=== PATIENT | female | born 1935 | race Caucasian/White ===

== ENCOUNTER 2017-10-24 08:10 | Outpatient (CLI) | payer MEDICARE ==
--- NOTE | 2017-10-24 09:47 | RAD ---
FIVE VIEWS CERVICAL SPINE: Comparison: None. History: Neck pain, cervicalgia. FINDINGS: Five views of the cervical spine shows normal height and alignment of the vertebral bodies and intrav ertebral discs without fracture or subluxation. No prevertebral soft tissue swelling is seen. Alignme nt is unchanged with flexion and extension. Mild degenerative changes are seen in the cervical spine. IMPRESSION: Mild degenerative changes of the cervical spine with unchanged alignment with bending. POS: [facility]
--- NOTE | 2017-10-24 09:50 | RAD ---
FOUR VIEWS LUMBAR SPINE: Date: 10-24-17 Comparison: None. History: Low back pain with bilateral knee pain extending into the feet. FINDINGS: There is a mild degree of dextroscoliosis of the lumbar spine. There is atherosclerotic calcification and tortuosity of the abdominal aorta. Neutral lateral imaging demonstrates anterolisthesis of 2-3 m m at L3-4 and 4 mm at L4-5. Facet hypertrophy at L3-4 through L5-S1 noted bilaterally. With flexion, anterolisthesis of L3 on L4 measures 2 mm and of L4 on L5 measures 6 mm. With extension the anterolis thesis at L3-4 is in the 2 mm range and at L4-5 is in the 4 mm range. No acute osseous abnormality. IMPRESSION: Multilevel degenerative change noted within the lumbar spine. This includes anterolisthesis of L4 on L5 measuring up to 6 mm with flexion. POS: [facility]
--- NOTE | 2017-10-24 10:12 | MRI ---
MRI CERVICAL SPINE WITHOUT CONTRAST: Comparison: None. History: Neck pain, cervicalgia. History of blocked carotid arteries and arthritis. Technique: Multiplanar, multisequence MRI images were obtained of the cervical spine without contrast . FINDINGS: Generalized disc desiccation is seen. The vertebral bodies demonstrate normal height and alignment wi th fracture or subluxation. The visualized cord demonstrates normal signal throughout. The craniocerv ical junction is unremarkable. C2-3: Unremarkable. C3-4: Unremarkable. C4-5: Unremarkable. C5-6: A small disc osteophyte complex is seen. Mild bilateral posterior cytosis. Mild central canal s tenosis. Mild to moderate bilateral neural foraminal stenosis. C6-7: A small disc osteophyte complex is seen. Mild bilateral posterior facet arthrosis. Mild central canal stenosis. Mild bilateral neural foraminal stenosis. C7-T1: Unremarkable. IMPRESSION: Degenerative changes of the cervical spine as above. POS: [facility]
== END 2017-10-24 08:11 | disposition home or self-care (01) ==
LOC: TBSIIMAG 08:10
PROVIDERS: ATTEND Surgery
DX: M54.2 Cervicalgia (principal); M54.6 Pain in thoracic spine; M54.5 Low back pain; M47.896 Other spondylosis, lumbar region; M43.16 Spondylolisthesis, lumbar region; M47.892 Other spondylosis, cervical region
CPT/HCPCS: 72050; 72110; 72141; 72146; 72148

== ENCOUNTER 2018-10-06 10:31 | Outpatient (CLI) | payer MEDICARE ==
--- NOTE | 2018-11-03 13:03 | MMO ---
Bilateral MAMMO Bilat Screen [facility]. CLINICAL HISTORY: Patient is 82 years old and is seen for screening. The patient has the following family history of breast cancer: sister. The patient has no personal history of cancer. VIEWS: The views performed were: bilateral craniocaudal with tomosynthesis and bilateral mediolateral oblique with tomosynthesis. MAMMOGRAM FINDINGS: There are scattered fibroglandular densities. There are benign appearing calcifications seen in both breasts. There are also vascular calcifications. There are no suspicious masses, suspicious calcifications, or new areas of architectural distortion. IMPRESSION: THERE IS NO MAMMOGRAPHIC EVIDENCE OF MALIGNANCY. A ROUTINE FOLLOW-UP MAMMOGRAM IN 1 YEAR IS RECOMMENDED. THE RESULTS OF THIS EXAM WERE SENT TO THE PATIENT. ACR BI-RADS Category 2 - Benign finding MAMMOGRAPHY NOTE: 1. A negative mammogram report should not delay a biopsy if a dominant of clinically suspicious mass is present. 2. Approximately 10% to 15% of breast cancers are not detected by mammography. 3. Adenosis and dense breasts may obscure an underlying neoplasm.
== END 2018-10-06 10:32 | disposition home or self-care (01) ==
LOC: BICMAMMO 10:31
PROVIDERS: ATTEND Family Medicine
DX: Z12.31 Encounter for screening mammogram for malignant neoplasm of breast (principal); Z80.3 Family history of malignant neoplasm of breast
CPT/HCPCS: 77063; 77067

== ENCOUNTER 2020-10-18 10:34 | Outpatient (CLI) | payer MEDICARE ==
[2020-10-18] MEDS ORDERED: Iopamidol-370 76% 500 ML 1 ML ONE (13:55)
== END 2020-10-18 10:35 | disposition home or self-care (01) ==
LOC: BICCT 10:34
PROVIDERS: ATTEND Thoracic Surgery (Cardiothoracic Vascular Surgery)
DX: I65.23 Occlusion and stenosis of bilateral carotid arteries (principal)
CPT/HCPCS: 70498; Q9967

== ENCOUNTER 2020-12-20 09:49 | Outpatient (CLI) | payer MEDICARE ==
[2020-12-20 11:16] LABS: Hemoglobin 12.6 g/dL (12.0-15.5); Mean Corpuscular HGB CONC 32.6 g/dL (32.0-36.0); Mean Corpuscular Hemoglobin 28.5 pg (27.0-33.0); Mean Corpuscular Volume 87.3 fl (81.6-98.3); Mean Platelet Volume 10.1 fl (7.4-10.4); Platelet Count 365 10x3/uL (150-450); RBC Distribution Width 12.9 % (11.5-14.5); Red Blood Cell (RBC) Count 4.42 10x6/uL (3.90-5.03); White Blood Cell (WBC) Count 10.1 10x3/uL (3.5-10.5)
[2020-12-20 11:22] LABS: Anion Gap 11 mmol/L (10-20); BUN (Urea Nitrogen) 17 mg/dL (9.8-20.1); Calc. Creatinine Clearance 0 mL/min (70-130); Calcium 10.9 mg/dL (7.8-10.44); Carbon Dioxide 28 mmol/L (23-31); Chloride 108 mmol/L (98-107); Glucose 98 mg/dL (83-110); Potassium 4.9 mmol/L (3.5-5.1); Sodium 142 mmol/L (136-145)
[2020-12-21 00:27] LABS: SARS-CoV-2 PCR by NAA Not Detected (NotDetected)
== END 2020-12-20 09:50 | disposition home or self-care (01) ==
LOC: LABBT 09:49
PROVIDERS: ATTEND Thoracic Surgery (Cardiothoracic Vascular Surgery)
DX: Z01.812 Encounter for preprocedural laboratory examination (principal); I65.22 Occlusion and stenosis of left carotid artery; Z20.822 Contact with and (suspected) exposure to COVID-19
CPT/HCPCS: 80048; 85027; 93005; U0003; U0005; 93010

== ENCOUNTER 2021-10-17 09:45 | Inpatient (IN) | payer MEDICARE ==
[2021-10-23] MEDS ORDERED: Protamine Sulfate 50 MG/5 ML VIAL ONE (10:58)
[2021-10-23] MEDS ORDERED: Bupivacaine PF 0.5% 30 ML VIAL ONE (10:58)
[2021-10-23] MEDS ORDERED: EPINEPHrine 1 MG/ML AMP ONE (10:58)
[2021-10-23] MEDS ORDERED: Heparin 5,000 UNITS/ML VIAL ONE (10:58)
[2021-10-23] MEDS ORDERED: fentaNYL Citrate/PF 100 MCG/2 ML SYRINGE ONE ×2 (11:04)
[2021-10-23] MEDS ORDERED: Nitroglycerin 50 MG/250 ML BOT 250 ML ONE (11:04)
[2021-10-23] MEDS ORDERED: CEFAZOLIN 2 GM VIAL ONE (11:14)
[2021-10-23] MEDS ORDERED: Sodium Chloride 0.9% 100 ML ONE (11:14)
[2021-10-23] MEDS ORDERED: Glycopyrrolate 0.2 MG/ML 5 ML SYRINGE ONE (11:34)
[2021-10-23] MEDS ORDERED: Rocuronium Bromide 10 MG/ML (10ML VIAL) ONE (11:34)
[2021-10-23] MEDS ORDERED: Ketorolac Tromethamine 30 MG/ML VIAL ONE (11:34)
[2021-10-23] MEDS ORDERED: ePHEDrine 50 MG/ML VIAL ONE (11:34)
[2021-10-23] MEDS ORDERED: PROPOFOL 200 MG/20 ML VIAL ONE (11:34)
[2021-10-23] MEDS ORDERED: Lidocaine 1% PF 5 ML VIAL ONE (11:34)
[2021-10-23] MEDS ORDERED: Dexamethasone 20 MG/5 ML VIAL ONE (11:34)
[2021-10-23] MEDS ORDERED: Labetalol HCl 100 MG/20 ML VIAL ONE (11:34)
[2021-10-23] MEDS ORDERED: Fentanyl 100 MCG/2 ML VIAL SLOW IVP PRN ×2 (12:42)
[2021-10-23] MEDS ORDERED: traMADol HCl 50 MG TAB PO PRN (12:42)
[2021-10-23] MEDS ORDERED: Ondansetron PF 4 MG/2 ML Vial IVP PRN (12:42)
[2021-10-23] MEDS ORDERED: Phenylephrine 40 MG/NS 250 ML 40 MG in Premix Bag 1 BAG IVPB PRN (12:42)
[2021-10-23] MEDS ORDERED: niCARdipine 25 MG in Sodium Chloride 0.9% 250 ML 250 ML IVPB PRN (12:42)
[2021-10-23] MEDS ORDERED: Acetaminophen 325 MG TAB PO PRN (12:42)
[2021-10-23] MEDS ORDERED: Sodium Chloride 0.9% 1,000 ML IV SCH (12:45)
[2021-10-23] MEDS ORDERED: Acetaminophen 325 MG TAB ONE (13:11)
[2021-10-23 15:43] VITALS: BMI 20.6
[2021-10-23] MEDS ORDERED: Atorvastatin Calcium 10 MG TAB PO SCH (21:00)
[2021-10-23] MEDS: CEFAZOLIN 2 GM in Sodium Chloride 0.9% 100 ML IVPB SCH (21:00)
[2021-10-24] MEDS: CEFAZOLIN 2 GM in Sodium Chloride 0.9% 100 ML IVPB SCH ×2 (03:23→11:35)
[2021-10-24] MEDS ORDERED: Losartan 25 MG TAB PO SCH (09:00)
[2021-10-24] MEDS ORDERED: Aspirin Chewable 81 MG TAB PO SCH (09:00)
[2021-10-24 12:49] VITALS: TEMP 97.7
== END 2021-10-24 13:25 | disposition home or self-care (01) | DRG 38 ==
LOC: SURG A 10-23 10:09 → CCU 10-23 15:20
PROVIDERS: ADMIT Thoracic Surgery (Cardiothoracic Vascular Surgery); ATTEND Thoracic Surgery (Cardiothoracic Vascular Surgery)
PROC: 03CL0ZZ Extirpation of Matter from Left Internal Carotid Artery, Open Approach (ICD-10-PCS; principal; 2021-10-23)
PROC: 03UL0KZ Supplement Left Internal Carotid Artery with Nonautologous Tissue Substitute, Open Approach (ICD-10-PCS; 2021-10-23)
DX: I65.22 Occlusion and stenosis of left carotid artery (principal); G97.82 Other postprocedural complications and disorders of nervous system; I10 Essential (primary) hypertension; I73.9 Peripheral vascular disease, unspecified; I65.23 Occlusion and stenosis of bilateral carotid arteries; E78.2 Mixed hyperlipidemia; K13.0 Diseases of lips; Y83.8 Other surgical procedures as the cause of abnormal reaction of the patient, or of later complication, without mention of misadventure at the time of the procedure; Z98.42 Cataract extraction status, left eye; Z98.41 Cataract extraction status, right eye; Z90.710 Acquired absence of both cervix and uterus; Z79.899 Other long term (current) drug therapy; Z79.82 Long term (current) use of aspirin; Z79.02 Long term (current) use of antithrombotics/antiplatelets; Z82.3 Family history of stroke; Z83.3 Family history of diabetes mellitus; Z82.49 Family history of ischemic heart disease and other diseases of the circulatory system
CPT/HCPCS: C1768; C1776; J0171; J0690; J1642; J1644; J2720; J3490; J7050; S0020

== ENCOUNTER 2021-10-17 10:09 | Outpatient (CLI) | payer MEDICARE ==
[2021-10-17 11:21] LABS: Hemoglobin 12.3 g/dL (12.0-15.5); Mean Corpuscular HGB CONC 32.3 g/dL (32.0-36.0); Mean Corpuscular Hemoglobin 28.3 pg (27.0-33.0); Mean Corpuscular Volume 87.6 fl (81.6-98.3); Mean Platelet Volume 10.1 fl (7.4-10.4); Platelet Count 380 10x3/uL (150-450); RBC Distribution Width 12.9 % (11.5-14.5); Red Blood Cell (RBC) Count 4.35 10x6/uL (3.90-5.03); White Blood Cell (WBC) Count 8.3 10x3/uL (3.5-10.5)
[2021-10-17 11:42] LABS: Anion Gap 11 mmol/L (10-20); BUN (Urea Nitrogen) 14 mg/dL (9.8-20.1); Calc. Creatinine Clearance 0 mL/min (70-130); Calcium 10.3 mg/dL (7.8-10.44); Carbon Dioxide 27 mmol/L (23-31); Chloride 105 mmol/L (98-107); Glucose 131 mg/dL (83-110); Potassium 4.3 mmol/L (3.5-5.1); Sodium 139 mmol/L (136-145)
== END 2021-10-17 10:10 | disposition home or self-care (01) ==
LOC: LABBT 10:09
PROVIDERS: ATTEND Thoracic Surgery (Cardiothoracic Vascular Surgery)
DX: Z01.812 Encounter for preprocedural laboratory examination (principal); Z20.822 Contact with and (suspected) exposure to COVID-19
CPT/HCPCS: 80048; 85027; U0003; U0005

== ENCOUNTER 2022-02-20 09:19 | Outpatient (CLI) | payer MEDICARE | END 2022-02-20 09:20 | disposition home or self-care (01) | LOC: SCSMRI 09:19 | PROVIDERS: ATTEND Family Medicine | DX: M48.061 Spinal stenosis, lumbar region without neurogenic claudication (principal) | CPT/HCPCS: 72148 ==